=== PATIENT | female | born 1985 ===

== ENCOUNTER 2021-05-30 15:36 | Inpatient (IN) ==
[2021-05-30] MEDS ORDERED: ONDANSETRON 4 MG/2 ML VIAL IV PRN (18:46)
[2021-05-30] MEDS ORDERED: GLUCAGON 1 MG VIAL IM PRN (18:46)
[2021-05-30] MEDS ORDERED: ACETAMINOPHEN 325 MG TABLET PO PRN (18:46)
[2021-05-30] MEDS ORDERED: SODIUM CHLORIDE 0.9% 2,550 ML IV ONE (18:50)
[2021-05-30] MEDS ORDERED: INSULIN REGULAR 100 UNIT/ML IV ONE (18:52)
[2021-05-30] MEDS ORDERED: DEXTROSE 50% 25 GM/50 ML SYRINGE IV PRN (18:52)
[2021-05-30 19:33] LABS: Basophils % 0.3 % (0.0-0.8); Eosinophils # 0.2 10*3/uL (0.0-0.87); Eosinophils % 1.5 % (0.00-10.9); Hematocrit 34.8 VOL% (35.7-47.0); Hemoglobin 11.4 GM/DL (12.0-16.0); Immature Granulocytes % 0.9 %; Lymphocytes # 1.6 10*3/uL (1.4-4.0); Lymphocytes % 14.1 % (21.3-54.2); Mean Corpuscular HGB Conc 32.8 GM/DL (32-36); Mean Corpuscular Volume 84.7 FL (87-102); Mean Platelet Volume 9.9 FL (9.6-12.0); Monocytes % 8.2 % (1.7-12.7); Platelet Count 258 T/CUMM (130-400); Red Blood Count 4.11 MC/CUMM (3.8-5.5); Red Cell Distribution Width 13.3 % (9.3-17.3)
[2021-05-30 19:52] LABS: Albumin 2.6 G/DL (3.4-5.0); Bilirubin,Total 0.4 MG/DL (0.20-1.00); Calcium 8.3 MG/DL (8.5-10.1); Osmolality,Calculated 281.8 MOS/KG (273-304); Potassium 3.4 MMOL/L (3.5-5.1); Total Protein 6.9 G/DL (6.4-8.2)
[2021-05-30] MEDS: PIPERACILLIN/TAZOBACTAM 3,375 MG in SODIUM CHLORIDE 0.9% 100 ML IV SCH (21:13)
[2021-05-30] MEDS: INSULIN REGULAR 100 UNIT/ML SUBCUT SCH (21:14)
[2021-05-30 23:41] LABS: Bacteria,Urine Occasional /HPF (Few); Bilirubin,Urine Negative (Negative); Blood, Urine Negative (Negative); Glucose,Urine (UA) >=500 mg/dL (Negative); Ketones,Urine 5 mg/dL (Negative); Nitrite,Urine Negative (Negative); Protein,Urine Negative; RBC,Urine 1 /HPF (0-4); Squamous Epithelial Cell,Urine Occasional /HPF (0-10); Urine Appearance CLEAR (Clear); Urine Color Yellow (Yellow); Urine Specific Gravity 1.041 (1.001-1.035)
[2021-05-31] MEDS: VANCOMYCIN INJ 1,250 MG in SODIUM CHLORIDE 0.9% 250 ML IV SCH ×2 (01:38→16:33)
[2021-05-31] MEDS: LACTATED RINGERS 1,000 ML IV SCH (03:55)
[2021-05-31] MEDS: PIPERACILLIN/TAZOBACTAM 3,375 MG in SODIUM CHLORIDE 0.9% 100 ML IV SCH ×2 (03:56→12:23)
[2021-05-31 05:10] LABS: Basophils % 0.3 % (0.0-0.8); Eosinophils # 0.1 10*3/uL (0.0-0.87); Hematocrit 32.2 VOL% (35.7-47.0); Hemoglobin 10.5 GM/DL (12.0-16.0); Immature Granulocytes % 0.7 %; Immature Granulocytes Absolute 0.07 #; Lymphocytes # 1.2 10*3/uL (1.4-4.0); Lymphocytes % 10.8 % (21.3-54.2); Mean Corpuscular HGB Conc 32.6 GM/DL (32-36); Mean Corpuscular Volume 85.4 FL (87-102); Mean Platelet Volume 9.9 FL (9.6-12.0); Monocytes % 7.9 % (1.7-12.7); Neutrophils % 79.3 % (38.7-73.9); Platelet Count 244 T/CUMM (130-400); Red Blood Count 3.77 MC/CUMM (3.8-5.5); Red Cell Distribution Width 13.2 % (9.3-17.3); White Blood Count 10.6 T/CUMM (4-12)
[2021-05-31 05:25] LABS: Albumin 2.4 G/DL (3.4-5.0); Bilirubin,Total 0.9 MG/DL (0.20-1.00); Calcium 7.4 MG/DL (8.5-10.1); Osmolality,Calculated 275.1 MOS/KG (273-304); Potassium 3.2 MMOL/L (3.5-5.1); Total Protein 6.2 G/DL (6.4-8.2)
[2021-05-31] MEDS ORDERED: LIDOCAINE 2% 5 ML VIAL ONE (08:16)
[2021-05-31] MEDS ORDERED: propofoL 200 MG/20 ML VIAL IV ONE (08:16)
[2021-05-31] MEDS ORDERED: MIDAZOLAM 2 MG/2 ML VIAL ONE (08:17)
[2021-05-31] MEDS ORDERED: ONDANSETRON 4 MG/2 ML VIAL ONE (08:17)
[2021-05-31] MEDS ORDERED: fentaNYL 100 MCG/2 ML VIAL ONE (08:17)
[2021-05-31] MEDS ORDERED: PANTOPRAZOLE 40 MG TABLET PO SCH (09:00)
[2021-05-31] MEDS ORDERED: SUCCINYLCHOLINE 200 MG/10 ML VIAL ONE (09:26)
[2021-05-31] MEDS ORDERED: SEVOFLURANE 1 UNIT/15 MINUTE INH ONE (10:06)
[2021-05-31] MEDS ORDERED: ONDANSETRON 4 MG/2 ML VIAL IV PRN (10:27)
[2021-05-31] MEDS ORDERED: HYDROmorphone 2 MG/1 ML VIAL IV PRN (10:27)
[2021-05-31] MEDS ORDERED: HYDROmorphone 2 MG/1 ML VIAL ONE (10:28)
[2021-05-31 11:13] VITALS: BP 136/80
[2021-05-31] MEDS ORDERED: DEXTROSE 50% 25 GM/50 ML VIAL IV PRN (12:19)
[2021-05-31] MEDS ORDERED: GLUCAGON 1 MG VIAL IM PRN (12:19)
[2021-05-31] MEDS: INSULIN REGULAR 100 UNIT/ML SUBCUT SCH ×3 (12:22→16:31)
[2021-05-31] MEDS ORDERED: INSULIN GLARGINE 100 UNIT/ML SUBCUT SCH (14:00)
[2021-05-31] MEDS ORDERED: SODIUM CHLOR 0.9% KCL 40 MEQ 40 MEQ/1,000 ML BAG IV SCH (15:00)
[2021-05-31] MEDS ORDERED: INSULIN LISPRO 100 UNIT/ML SUBCUT SCH (16:30)
[2021-05-31] MEDS ORDERED: ENOXAPARIN 40 MG/0.4 ML SYRINGE SUBCUT SCH (21:00)
== END 2021-05-31 16:37 | disposition left against medical advice (07) | DRG 638 ==
LOC: N.5E 17:49 → SUATTDRO 17:49
PROVIDERS: ADMIT Internal Medicine; ATTEND Internal Medicine

== ENCOUNTER 2022-06-06 17:05 | Observation (INO) ==
[2022-06-06] MEDS ORDERED: MORPHINE 2 MG/1 ML SYRINGE IV PRN (18:18)
[2022-06-06] MEDS ORDERED: ONDANSETRON 4 MG/2 ML VIAL IV PRN ×2 (18:18→21:50)
[2022-06-06] MEDS ORDERED: DEXTROSE 5% NACL 0.45% 1,000 ML IV SCH (18:30)
[2022-06-06] MEDS ORDERED: MORPHINE 2 MG/1 ML SYRINGE IM PRN (21:50)
[2022-06-06] MEDS ORDERED: ZALEPLON 5 MG CAPSULE PO PRN (21:52)
[2022-06-06] MEDS: DEXTROSE 5% NACL 0.45% 1,000 ML IV SCH (22:02)
[2022-06-07] MEDS ORDERED: INSULIN REGULAR 100 UNIT/ML SUBCUT SCH
[2022-06-07] MEDS: INSULIN REGULAR 100 UNIT/ML SUBCUT SCH ×3 (00:37→13:02)
[2022-06-07] MEDS ORDERED: MORPHINE 2 MG/1 ML SYRINGE IV PRN (01:24)
[2022-06-07] MEDS: DEXTROSE 5% NACL 0.45% 1,000 ML IV SCH (06:07)
[2022-06-07 06:45] LABS: Basophils % 0.4 % (0.0-0.8); Eosinophils # 0.2 10*3/uL (0.0-0.87); Eosinophils % 3.4 % (0.00-10.9); Hematocrit 35.1 VOL% (35.7-47.0); Hemoglobin 12.6 GM/DL (12.0-16.0); Immature Granulocytes % 0.4 %; Immature Granulocytes Absolute 0.03 #; Lymphocytes % 27.8 % (21.3-54.2); Mean Corpuscular HGB Conc 35.9 GM/DL (32-36); Mean Corpuscular Volume 82.4 FL (87-102); Mean Platelet Volume 10.4 FL (9.6-12.0); Monocytes # 0.5 10*3/uL (0.11-0.8); Monocytes % 6.7 % (1.7-12.7); Neutrophils % 61.3 % (38.7-73.9); Platelet Count 239 T/CUMM (130-400); Red Blood Count 4.26 MC/CUMM (3.8-5.5); Red Cell Distribution Width 13.2 % (9.3-17.3); White Blood Count 7.2 T/CUMM (4-12)
[2022-06-07 06:55] LABS: INR 0.9; PT Patient Result 10.3 SECS (10.1-12.1); Partial Thromboplastin Time 27.5 SECS (23.7-32.9)
[2022-06-07 07:33] LABS: Bilirubin,Total 0.8 MG/DL (0.20-1.00); Calcium 7.5 MG/DL (8.5-10.1); Osmolality,Calculated 275.4 MOS/KG (273-304); Total Protein 6.7 G/DL (6.4-8.2)
[2022-06-07 07:56] VITALS: BP 147/93
[2022-06-07] MEDS ORDERED: ACETAMINOPHEN 325 MG TABLET PO PRN (08:28)
[2022-06-07] MEDS ORDERED: PANTOPRAZOLE 40 MG VIAL IV SCH ×2 (09:00)
[2022-06-07] MEDS ORDERED: GLUCAGON 1 MG VIAL IM PRN (10:05)
[2022-06-07] MEDS ORDERED: DEXTROSE 10% 250 ML BAG IV PRN (10:07)
[2022-06-07 11:57] LABS: Hematocrit 35.3 VOL% (35.7-47.0); Hemoglobin 12.6 GM/DL (12.0-16.0)
== END 2022-06-07 13:06 | disposition home or self-care (01) ==
LOC: EDBD → EDUNIT# → N.ED 17:05 → N.EDINP 17:05 → N.5E 22:01
PROVIDERS: ADMIT Surgery; ATTEND Surgery